=== PATIENT | male | born 1975 | race Caucasian/White ===

== ENCOUNTER 2019-05-16 15:38 | Emergency (ER) | payer BC ==
[~2019-05-16] VITALS: Ht 182.9 cm; Wt 90.9 kg
[2019-05-16] MEDS ORDERED: HYDR200T3 (15:43)
[2019-05-16 16:58] LABS: BASO % 0.5 % (0.0-1.0); EOS # 0.1 10^3/uL (0.0-0.50); EOS % 1.4 % (0.0-3.0); HEMATOCRIT 41.4 % (42.0-52.0); HEMOGLOBIN 14.4 g/dl (13.5-17.5); LYMPH % 14.7 % (24.0-44.0); MEAN CORPUSCULAR HEMOGLOBIN 34.1 pg (27.0-33.0); MEAN CORPUSCULAR HGB CONC 34.8 g/dl (32.0-36.5); MEAN CORPUSCULAR VOLUME 98.1 fl (80.0-96.0); MONO # 0.8 10^3/uL (0.0-0.8); MONO % 12.7 % (0.0-5.0); NEUTROPHILS # 4.5 10^3/uL (1.8-7.7); NEUTROPHILS % 70.4 % (36.0-66.0); PLATELET COUNT, AUTOMATED 240 10^3/uL (150-450); RED BLOOD COUNT 4.22 10^6/uL (4.30-6.10); WHITE BLOOD COUNT 6.5 10^3/uL (4.0-10.0)
--- NOTE | 2019-05-16 17:03 | REP ---
CHEST, TWO VIEWS: COMPARISON: 04/12/2014 There is no evidence of acute infiltrate. No pleural effusion is seen. The heart is normal in size. The mediastinal silhouette is unremarkable. The visualized osseous structures are intact. IMPRESSION: No acute pulmonary disease. Electronically Signed by Arun Grissom MD 05/19/2019 10:01 A
[2019-05-16] MEDS ORDERED: MORPHINE 4 MG/ML 1ML VIAL/SYRINGE (J2270) IV ONE (17:15)
[2019-05-16] MEDS ORDERED: ONDANSETRON 4MG/2ML VIAL (J2405) IV ONE (17:15)
[2019-05-16] MEDS ORDERED: NS 1,000 ML IV SCH (17:15)
[2019-05-16 17:22] LABS: ALBUMIN 3.8 GM/DL (3.2-5.2); ALT/SGPT 38 U/L (12-78); BILIRUBIN,DIRECT 0.2 MG/DL (0.0-0.2); BILIRUBIN,TOTAL 0.6 MG/DL (0.2-1.0); BLOOD UREA NITROGEN 16 MG/DL (7-18); CALCIUM LEVEL 8.9 MG/DL (8.5-10.1); CARBON DIOXIDE LEVEL 28 MEQ/L (21-32); CHLORIDE LEVEL 107 MEQ/L (98-107); GLOMERULAR FILTRATION RATE > 60.0 (>60); GLUCOSE, FASTING 102 MG/DL (70-100); LIPASE 101 U/L (73-393); SODIUM LEVEL 143 MEQ/L (136-145); TOTAL PROTEIN 6.4 GM/DL (6.4-8.2)
[2019-05-16] MEDS ORDERED: ISOVUE-370 76% 100ML VIAL (Q9967) As Ordered ONE (17:33)
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
[2019-05-16] MEDS ORDERED: PERC5TAB12 PO (19:33)
[2019-05-16 19:45] VITALS: BP 133/77
== END 2019-05-16 20:03 | disposition home or self-care (01) ==
LOC: M ED 15:38
DX: J90 Pleural effusion, not elsewhere classified (principal); S22.41XA Multiple fractures of ribs, right side, initial encounter for closed fracture; T14.8XXA Other injury of unspecified body region, initial encounter; V94.89XA Other water transport accident, initial encounter; Y92.89 Other specified places as the place of occurrence of the external cause
CPT/HCPCS: 36415; 71046; 71260; 74177; 80048; 80076; 83690; 85025; 93041; 96374; 99285; J2405; Q9967

== ENCOUNTER → 2019-10-27 | Outpatient (CLI) | payer BC ==
[~2019-10-27] MED LIST: HYDR200T3; PERC5TAB12 PO
--- NOTE | 2019-10-27 09:33 | REP ---
Eight views cervical spine: 10/27/2019. Indication: Neck pain. Comparison: None. Findings: There is no acute fracture, subluxation or dislocation. There is straightening of the cervical lordosis. There is no instability demonstrated on the dynamic images. Spondylosis is present at C5/C6 and C6/C7. Neural foraminal narrowing is most pronounced at C5/C6. No severe spinal canal narrowing is detected. The prevertebral soft tissues are unremarkable. Impression: No acute osseous cervical spine injury is present. Electronically Signed by Sly Joseph DO 10/27/2019 09:25 A
== END ==
LOC: M WUC 09:00
PROVIDERS: ATTEND Nurse Practitioner Family
DX: M54.2 Cervicalgia (principal)